=== PATIENT | female | born 1980 | race Caucasian/White ===

== ENCOUNTER 2018-08-28 14:19 | Emergency (ER) | payer MEDICAID ==
[~2018-08-28] VITALS: Ht 162.6 cm; Wt 70.0 kg
[2018-08-28] MEDS ORDERED: ASPIRIN 81MG TABLET PO ONE (14:45)
[2018-08-28 15:28] LABS: BASOPHILS % 0.7 % (0.0-2.0); CHLORIDE 102 mEq/L (98-107); EOSINOPHILS % 2.1 % (0.0-5.0); HEMATOCRIT. 36.1 % (36.0-48.0); HEMOGLOBIN. 11.7 g/dL (12.0-16.0); LYMPHOCYTES % 28.1 % (20.0-50.0); MEAN CORPUSCULAR HEMOGLOBIN 23.5 pg (28.0-32.0); MEAN CORPUSCULAR VOLUME 72.7 fL (81.0-99.0); MEAN PLATELET VOLUME 7.9 fl (7.4-10.4); MONOCYTES % 7.5 % (2.0-8.0); NEUTROPHILS % 61.6 % (40.0-76.0); PLATELET 419 x1000/uL (130-400); RED BLOOD CELL COUNT 4.97 mill/uL (4.2-5.4); RED CELL DISTRIBUTION WIDTH 15.3 % (11.6-14.6)
[2018-08-28 15:37] LABS: HCG SCREEN NEGATIVE
[2018-08-28 15:41] LABS: D-DIMER 0.94 mg/L FEU (<0.50); PARTIAL THROMBOPLASTIN TIME 28.9 sec (23.4-31.0); PROTHROMBIN TIME 10.5 sec (9.1-11.1)
[2018-08-28 21:45] VITALS: BP 116/79
== END 2018-08-28 21:45 | disposition home or self-care (01) ==
LOC: ER 14:19
DX: R07.9 Chest pain, unspecified (principal)
CPT/HCPCS: 36415; 71045; 71275; 83880; 84484; 84703; 85379; 93005; 99284